=== PATIENT | female | born 1950 | race Caucasian/White ===

== ENCOUNTER 2025-03-13 07:36 | Day surgery (SDC) | payer OTHER ==
[~2025-03-13] VITALS: Ht 162.6 cm; Wt 68.0 kg
[~2025-03-13 07:36] MED LIST: ASPI325T6 PO; ATEN-60 PO; ATOR-507 PO; CEPH250C PO; GABA-339 PO; POTA-36 PO; ROPI4TAB26 PO; TORS20TA20 PO
[2025-03-13] MEDS: IODIXANOL 320MG/ML 100ML BTL IV ONE (07:58)
[2025-03-13] MEDS: HEPARIN IN NS 1000Units/500mL 1,500 ML ONE (07:58)
[2025-03-13] MEDS: fentaNYL CITRATE 100 MCG/2 ML VL ONE (08:23)
[2025-03-13] MEDS: ANGIOMAX 250 MG VIAL IV ONE (08:23)
[2025-03-13] MEDS: SODIUM CHL 0.9% 0 ML ONE (08:23)
[2025-03-13] MEDS: MIDAZOLAM HCL 2MG/2ML 2ml VIAL (1mg/ml) ONE (08:23)
[2025-03-13] MEDS: LIDOCAINE 2%HCL (LOCAL ANESTH.) INJ 20ML MDV ONE (08:24)
[2025-03-13] MEDS: HEPARIN SODIUM (PORCINE) 5000 UNITS/ML 1ML VIAL ONE (09:13)
[2025-03-13 09:19] VITALS: BP 115/78; PULSE 89; RESP 13; TEMP 98.9; O2SAT 94
[2025-03-13 09:34] VITALS: BP 107/69; PULSE 89; RESP 13; O2SAT 91
--- NOTE | 2025-03-13 09:37 | DVHOP ---
DATE OF SURGERY: 03/13/2025 PREOPERATIVE DIAGNOSES: Ischemic rest pain and PAD, history of cellulitis. POSTOPERATIVE DIAGNOSES: Ischemic rest pain and PAD, history of cellulitis. PROCEDURES PERFORMED: Ultrasound-guided vascular access. Conscious sedation administration and supervision less than 50 minutes as well as 15 to 30 minutes fluoroscopy use with interpretation: Unilateral lower extremity angiogram. Intraarterial injection. First, second, third-order catheterization for lower extremity cath. DESCRIPTION OF PROCEDURE: The patient signed informed consent understanding the risks, benefits, and alternatives of procedure, she wished to proceed. She was brought to the assistant laboratory director [place]. She was prepped in sterile fashion. I assessed the right anterior tibial artery which was patent and heavily calcified. I cannulated that after giving 2 mL of 2% lidocaine. I cannulated with a micro needle and placed a 5-Hungarian Glidesheath Slender. Next, an intraarterial spasmolytic was administered. Next, I took an angiogram of the lower extremity and then with an 0.035 Quick-Cross performed angiogram of the right lower extremity. FINDINGS: * Right anterior tibial artery is patent with mild plaque. * Right tibioperoneal trunk is patent. * Right posterior tibial artery is patent with mild plaque. * Right peroneal artery is diminutive. * Right popliteal artery is patent. * Right proximal, mid, and distal SFA is patent with [id number] non-significant heavily calcific plaque. * Right common femoral artery is completely occluded. 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 PLAN: The patient may benefit from a vascular endarterectomy to the right WINDOW AND SIDING CRAFTSMAN. Consider left-sided angiogram in the future if indicated. Mak Alvarez MD CM/TASHA TID: [id number] RECEIPT: [id number]
[2025-03-13 09:49] VITALS: BP 95/59; PULSE 85; RESP 12; O2SAT 90
[2025-03-13 10:04] VITALS: BP 106/65; PULSE 80; RESP 11; O2SAT 92
[2025-03-13 10:19] VITALS: BP 108/69; PULSE 82; RESP 12; O2SAT 90
[2025-03-13 10:50] VITALS: BP 133/64; PULSE 69; RESP 13; O2SAT 92
== END 2025-03-13 11:05 | disposition home or self-care (01) ==
LOC: CATH 07:36
PROVIDERS: ATTEND Internal Medicine
DX: I70.229 Atherosclerosis of native arteries of extremities with rest pain, unspecified extremity (principal); I44.4 Left anterior fascicular block; I08.1 Rheumatic disorders of both mitral and tricuspid valves; I27.20 Pulmonary hypertension, unspecified; Z88.0 Allergy status to penicillin; Z88.5 Allergy status to narcotic agent; Z79.82 Long term (current) use of aspirin; Z79.899 Other long term (current) drug therapy; Z82.49 Family history of ischemic heart disease and other diseases of the circulatory system
CPT/HCPCS: 36247; 75710; C1769; C1887; C1894; J1644; J2250; J3010; J7030; Q9967; 99152